=== PATIENT | female | born 1995 | race Two or more races ===

== ENCOUNTER 2020-05-14 17:38 | Emergency (ER) | payer OTHER ==
[2020-05-14] MEDS ORDERED: Sodium Chloride 0.9% 10 ML Syringe FLUSH PRN (18:25)
--- NOTE | 2020-05-14 18:40 | EDM.PDOC ---
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 Patient states that her SUPERVISOR PIPELINE is Dr. Claudine Angulo and she was to see her this Tuesday for the first OB appointment. She is a G2, P1. Patient notes that her last menstrual period ended on March 07, so she thinks she is roughly 10-1/2 weeks . She notes that around 11 AM this morning she started having some vaginal spotting, this was not too heavy she is not even wearing a pad for the bleeding. She did show us a picture of the amount of blood, there is some very small clots and a very minimal amount of bleeding apparent. She is having some low pelvic discomfort but denies any dysuria, frequency or urgency. Further denies any fevers or chills, cough/shortness of breath, nausea/vomiting/diarrhea. Patient does not feel dizzy or lightheaded with standing from a sitting position. Patient speaks primarily Telugu, so her does translate Urdu well for her. 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 ED EXAM - Physical Exam Exam: See Below Exam Limited By: No Limitations General Appearance: Alert, WD/WN, No Apparent Distress Respiratory/Chest: No Respiratory Distress, Lungs Clear, Normal Breath Sounds, No Accessory Muscle Use, Chest Non-Tender Cardiovascular: Normal Peripheral Pulses, Regular Rate, Rhythm, No Edema GI/Abdominal Exam: Normal Bowel Sounds, Soft, Non-Tender, No Distention, No Mass Heart Tones: Not [place] Movement: Not Appreciated Neurological: Alert, Oriented, Normal Cognition, No Motor/Sensory Deficits Psychiatric: Normal Affect, Normal Mood Skin Exam: Warm, Dry, Intact, Normal Color, No Rash Course - Vital Signs Last Recorded V/S: Last Vital Signs Temp 98.9 F 05/14/20 18:09 Pulse 66 05/14/20 18:09 Resp 20 05/14/20 18:09 BP 100/65 05/14/20 18:09 Pulse Ox 99 05/14/20 18:09 - Orders/Labs/Meds Orders: Active Orders 24 hr Category Date Time Status Peripheral IV Care [RC] . DIRECTED Care 05/14/20 18:25 Ordered OB Transvaginal [US] Stat Exams 05/14/20 18:25 Ordered PATIENT RETYPE [BBK] Routine Lab 05/14/20 20:32 Ordered Sodium Chloride 0.9% [Saline Flush] Med 05/14/20 18:25 Ordered 10 ml FLUSH ASDIRECTED PRN Peripheral IV Insertion Adult [OM.PC] Stat Oth 05/14/20 18:25 Ordered Medication Orders Sodium Chloride (Sodium Chloride 0.9% 10 Ml Syringe) 10 ml FLUSH ASDIRECTED PRN PRN Reason: Keep Vein Open Last Admin: 05/14/20 18:58 Dose: 10 ml Documented by: ANA Labs: Laboratory Tests 05/14/20 05/14/20 05/14/20 Range/Units 18:50 18:50 18:50 WBC 9.09 (3.98-10.04) K/mm3 RBC 4.78 (3.98-5.22) M/mm3 Hgb 12.8 (11.2-15.7) gm/dl Hct 39.7 (34.1-44.9) % MCV 83.1 (79.4-94.8) fl MCH 26.8 (25.6-32.2) pg MCHC 32.2 (32.2-35.5) g/dl RDW Std Deviation 38.4 (36.4-46.3) fL Plt Count 293 (182-369) K/mm3 MPV 10.2 (9.4-12.3) fl Neut % (Auto) 54.1 (34.0-71.1) % Lymph % (Auto) 38.2 (19.3-51.7) % [place] % (Auto) 6.3 (4.7-12.5) % Eos % (Auto) 1.1 (0.7-5.8) Baso % (Auto) 0.2 (0.1-1.2) % Neut # (Auto) 4.92 (1.56-6.13) K/mm3 Lymph # (Auto) 3.47 (1.18-3.74) K/mm3 [place] # (Auto) 0.57 H (0.24-0.36) K/mm3 Eos # (Auto) 0.10 (0.04-0.36) K/mm3 Baso # (Auto) 0.02 (0.01-0.08) K/mm3 HCG, Quant 7571.0 mIU/mL Blood Type O POSITIVE Meds: Medications Generic Name Dose Route Start Last Admin Trade Name Freq PRN Reason Stop Dose Admin Sodium Chloride 10 ml 05/14/20 18:25 05/14/20 18:58 Sodium Chloride 0.9% 10 Ml Syringe FLUSH 10 ml ASDIRECTED PRN Administration Keep Vein Open - Re-Assessments/Exams Free Text/Narrative Re-Assessment/Exam: 05/14/20 18:40 Patient presents to the ED for her vaginal bleeding and , we will go ahead get ultrasound, get some baseline labs for evaluation. 05/14/20 20:54 Patient's labs resulted, and she did have ultrasound performed however official radiology read is still pending. CBC is unremarkable, hemoglobin is 12.8,. hCG quantitative level is 7571, blood type is O+. I did initially look at the ultrasound by myself, there was an area on the ultrasound that was dated at 5 weeks 4 days, she might not be as long as she had originally thought, this would correlate with the hCG quantitative level. 05/14/20 20:56 The patient's ultrasound demonstrates a gestational sac measuring 1.3 cm dating the at roughly 5 weeks 4 days, there is no embryonic pole identified or heart rate identified she has no adnexal masses and no free fluid. Impression is a likely early intrauterine , follow-up could be obtained to reassess for viability in 10 to 14 days time. We will have her follow-up with Tosha on Tuesday for her appointment at least for repeat quantitative levels to make sure that they are progressing. We will give her general recommendations and have her return to the ER if things worsen. Departure - Departure Time of Disposition: 20:57 Disposition: Home, Self-Care 01 Condition: Good Clinical Impression: Vaginal bleeding during - Discharge Information *PRESCRIPTION DRUG MONITORING PROGRAM REVIEWED*: No *COPY OF PRESCRIPTION DRUG MONITORING REPORT IN PATIENT HAROLDO: No Instructions: Vaginal Bleeding During , First Trimester Referrals: Claudine Angulo MD [Primary Care Provider] - Forms: ED Department Discharge Additional Instructions: You were evaluated in the ER today regarding your abdominal pain/vaginal bleeding in . You did have some labs drawn, and these were within normal limits, your hCG level was 7571, your blood type is O+. Your ultrasound demonstrated a fetus that is within the uterus, but seems to be fairly early and is measured only at 5 weeks 4 days, so you might not be as far along in the as you had originally anticipated. Unfortunately due to the early state of this , there was no heartbeat identified on today's ultrasound; but again the is likely more earlier than you thought it was, and the heart rate may not have just shown up at today's visit. Recommend that you do not lift anything heavier than a gallon of milk (5 lbs), do not engage in sexual activities, try to get as much pelvic rest as possible for the next few days. Please try not to exert yourself, rest and relax, and take it easy. If you are bleeding through more than 1-2 maxi pads every couple hours, this would be cause for concern to return to the ER for immediate management. Please follow up with your SUPERVISOR PIPELINE at your next scheduled appointment. Please keep your appointment for this Tuesday with Dr. Givens, at least to get your hCG quantitative level repeated, to make sure that the is progressing as expected. Please return to the ED at any time if your symptoms change or worsen. Sepsis Event Note (ED) - Evaluation Sepsis Screening Result: No Definite Risk - Focused Exam Vital Signs: Vital Signs Temp Pulse Resp BP Pulse Ox 05/14/20 18:09 98.9 F 66 20 100/65 99 - My Orders Last 24 Hours: My Active Orders 05/14/20 18:25 Peripheral IV Care [RC] . DIRECTED OB Transvaginal [US] Stat Sodium Chloride 0.9% [Saline Flush] 10 ml FLUSH ASDIRECTED PRN Peripheral IV Insertion Adult [OM.PC] Stat 05/14/20 20:32 PATIENT RETYPE [BBK] Routine - Assessment/Plan Last 24 Hours: My Active Orders 05/14/20 18:25 Peripheral IV Care [RC] . DIRECTED OB Transvaginal [US] Stat Sodium Chloride 0.9% [Saline Flush] 10 ml FLUSH ASDIRECTED PRN Peripheral IV Insertion Adult [OM.PC] Stat 05/14/20 20:32 PATIENT RETYPE [BBK] Routine
--- NOTE | 2020-05-15 09:17 | US ---
First trimester obstetrical ultrasound: Multiple real-time images were obtained transvaginally. Dates: Current ultrasound: Unknown Single gestational sac is seen. No embryo or yolk sac is noted. Maternal ovaries are present. Right maternal ovary shows a small abnormality measuring 1.9 cm most likely represents a physiologic cyst. No free fluid is seen. Impression: 1. Empty gestational sac. Follow-up recommended in 11-14 days to confirm status of . 2. Probable small physiologic cyst within the maternal right ovary. Diagnostic code #2 I agree with preliminary report from [facility], finalized on 05/14/20, 9:53 PM CDT
== END 2020-05-14 21:17 | disposition home or self-care (01) ==
LOC: JD.ED 17:38
DX: O20.9 Hemorrhage in early pregnancy, unspecified (principal); Z3A.01 Less than 8 weeks gestation of pregnancy
CPT/HCPCS: 36415; 76817; 76817-26; 84702; 85025; 86900; 86901; 99283; 99284-25

== ENCOUNTER 2020-05-17 20:33 | Emergency (ER) | payer OTHER ==
[2020-05-17] MEDS ORDERED: Sodium Chloride 0.9% 10 ML Syringe FLUSH PRN (20:54)
[2020-05-17] MEDS ORDERED: Sodium Chloride 0.9% 1,000 ML IV STA (21:05)
[2020-05-17] MEDS ORDERED: HYDROmorphone 0.5 MG/0.5 ML Syringe IVPUSH ONE (21:05)
--- NOTE | 2020-05-17 21:33 | EDM.PDOC ---
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 She is G2, P1 approximately 10 weeks gestation. States her last menstrual period began on 03 March and was completed on March 07. She was seen in this emergency department 3 days ago with onset of light vaginal bleeding. Pelvic ultrasound was completed that time and showed a sac measuring 5 weeks with no pole or heartbeat visualized. Patient and her expressed that there very confident on her dates. They did see her MOVEMENT ASSEMBLER, Dr. Givens, yesterday and states that they were told that she is likely miscarrying. She did have blood work repeated at that time, however, she was not given the results. She has been taking Tylenol for pain with her last dose being around 8 PM this evening. She states it takes the edge off the discomfort but does not manage it well. She reports saturating a regular pad every 2 hours. If she uses a heavy pad she changes about every 3-4 hours, however it is not saturated. She is scheduled for a follow-up visit with Dr. Angulo in 1 week for an ultrasound. 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: Reports: Social & Family History - Tobacco Use Tobacco Use Status *Q: Never Tobacco User Second Hand Smoke Exposure: No - Caffeine Use Caffeine Use: Reports: None - Recreational Drug Use Recreational Drug Use: No ED ROS GENERAL - Review of Systems Review Of Systems: See Below Constitutional: Reports: Fatigue HEENT: Reports: No Symptoms, Eye Discharge Respiratory: Reports: No Symptoms Cardiovascular: Reports: No Symptoms Endocrine: Reports: No Symptoms GI/Abdominal: Reports: No Symptoms : Reports: Other (Pelvic cramping, low back pain, vaginal bleeding) Musculoskeletal: Reports: No Symptoms Skin: Reports: No Symptoms Neurological: Reports: No Symptoms Psychiatric: Reports: No Symptoms Hematologic/Lymphatic: Reports: No Symptoms Immunologic: Reports: No Symptoms ED EXAM - Physical Exam Exam: See Below Exam Limited By: No Limitations General Appearance: Alert, WD/WN, No Apparent Distress Cardiovascular: Normal Peripheral Pulses, Regular Rate, Rhythm, No Edema, No Gallop, No JVD, No Murmur, No Rub GI/Abdominal Exam: Normal Bowel Sounds, Soft, No Organomegaly, No Distention, No Abnormal Bruit, No Mass, Pelvis Stable, Tender (suprapubic tenderness) Neurological: Alert, Oriented, CN II-XII Intact, Normal Cognition, Normal Gait, Normal Reflexes, No Motor/Sensory Deficits Psychiatric: Normal Affect, Normal Mood Skin Exam: Warm, Dry, Intact, Normal Color, No Rash Course - Vital Signs Last Recorded V/S: Last Vital Signs Temp 98.2 F 05/17/20 20:42 Pulse 78 05/17/20 20:42 Resp 16 05/17/20 20:42 BP 109/70 05/17/20 20:42 Pulse Ox 99 05/17/20 20:42 - Orders/Labs/Meds Orders: Active Orders 24 hr Category Date Time Status CULTURE URINE [RM] Stat Lab 05/17/20 22:39 Received Peripheral IV Insertion Adult [OM.PC] Stat Oth 05/17/20 20:54 Ordered Labs: Laboratory Tests 05/17/20 05/17/20 05/17/20 Range/Units 20:55 20:55 20:55 WBC 10.47 H (3.98-10.04) K/mm3 RBC 4.59 (3.98-5.22) M/mm3 Hgb 12.3 (11.2-15.7) gm/dl Hct 38.2 (34.1-44.9) % MCV 83.2 (79.4-94.8) fl MCH 26.8 (25.6-32.2) pg MCHC 32.2 (32.2-35.5) g/dl RDW Std Deviation 38.1 (36.4-46.3) fL Plt Count 259 (182-369) K/mm3 MPV 10.1 (9.4-12.3) fl Neut % (Auto) 54.6 (34.0-71.1) % Lymph % (Auto) 36.9 (19.3-51.7) % [place] % (Auto) 6.9 (4.7-12.5) % Eos % (Auto) 1.3 (0.7-5.8) Baso % (Auto) 0.1 (0.1-1.2) % Neut # (Auto) 5.72 (1.56-6.13) K/mm3 Lymph # (Auto) 3.86 H (1.18-3.74) K/mm3 [place] # (Auto) 0.72 H (0.24-0.36) K/mm3 Eos # (Auto) 0.14 (0.04-0.36) K/mm3 Baso # (Auto) 0.01 (0.01-0.08) K/mm3 Manual Slide Review Normal smear Sodium 141 (136-145) mEq/L Potassium 3.8 (3.5-5.1) mEq/L Chloride 105 (98-107) mEq/L Carbon Dioxide 24 (21-32) mEq/L Anion Gap 15.8 H (5-15) BUN 15 (7-18) mg/dL Creatinine 0.7 (0.55-1.02) mg/dL Est Cr Clr Drug Dosing TNP Estimated GFR (MDRD) > 60 (>60) mL/min BUN/Creatinine Ratio 21.4 H (14-18) Glucose 101 (74-106) mg/dL Calcium 9.0 (8.5-10.1) mg/dL Total Bilirubin 0.1 L (0.2-1.0) mg/dL AST 17 (15-37) U/L ALT 22 (14-59) U/L Alkaline Phosphatase 59 (46-116) U/L Total Protein 7.6 (6.4-8.2) g/dl Albumin 3.6 (3.4-5.0) g/dl Globulin 4.0 gm/dL Albumin/Globulin Ratio 0.9 L (1-2) HCG, Quant 4347.0 mIU/mL Urine Color (Yellow) Urine Appearance (Clear) Urine pH (5.0-8.0) Ur Specific [place] (1.005-1.030) Urine Protein (Negative) Urine Glucose (UA) (Negative) Urine Ketones (Negative) Urine Occult Blood (Negative) Urine Nitrite (Negative) Urine Bilirubin (Negative) Urine Urobilinogen (0.2-1.0) Ur Leukocyte Esterase (Negative) Urine RBC (0-5) /hpf Urine WBC (0-5) /hpf Ur Squamous Epith Cells (0-5) /hpf Urine Bacteria (FEW) /hpf Urine Mucus (FEW) /hpf 05/17/20 Range/Units 22:13 WBC (3.98-10.04) K/mm3 RBC (3.98-5.22) M/mm3 Hgb (11.2-15.7) gm/dl Hct (34.1-44.9) % MCV (79.4-94.8) fl MCH (25.6-32.2) pg MCHC (32.2-35.5) g/dl RDW Std Deviation (36.4-46.3) fL Plt Count (182-369) K/mm3 MPV (9.4-12.3) fl Neut % (Auto) (34.0-71.1) % Lymph % (Auto) (19.3-51.7) % [place] % (Auto) (4.7-12.5) % Eos % (Auto) (0.7-5.8) Baso % (Auto) (0.1-1.2) % Neut # (Auto) (1.56-6.13) K/mm3 Lymph # (Auto) (1.18-3.74) K/mm3 [place] # (Auto) (0.24-0.36) K/mm3 Eos # (Auto) (0.04-0.36) K/mm3 Baso # (Auto) (0.01-0.08) K/mm3 Manual Slide Review Sodium (136-145) mEq/L Potassium (3.5-5.1) mEq/L Chloride (98-107) mEq/L Carbon Dioxide (21-32) mEq/L Anion Gap (5-15) BUN (7-18) mg/dL Creatinine (0.55-1.02) mg/dL Est Cr Clr Drug Dosing Estimated GFR (MDRD) (>60) mL/min BUN/Creatinine Ratio (14-18) Glucose (74-106) mg/dL Calcium (8.5-10.1) mg/dL Total Bilirubin (0.2-1.0) mg/dL AST (15-37) U/L ALT (14-59) U/L Alkaline Phosphatase (46-116) U/L Total Protein (6.4-8.2) g/dl Albumin (3.4-5.0) g/dl Globulin gm/dL Albumin/Globulin Ratio (1-2) HCG, Quant mIU/mL Urine Color Red H (Yellow) Urine Appearance Cloudy H (Clear) Urine pH 6.0 (5.0-8.0) Ur Specific [place] 1.020 (1.005-1.030) Urine Protein 3+ H (Negative) Urine Glucose (UA) Negative (Negative) Urine Ketones 1+ H (Negative) Urine Occult Blood 3+ H (Negative) Urine Nitrite Positive H (Negative) Urine Bilirubin 2+ H (Negative) Urine Urobilinogen 1.0 (0.2-1.0) Ur Leukocyte Esterase 3+ H (Negative) Urine RBC Too numerous to cnt H (0-5) /hpf Urine WBC 5-10 H (0-5) /hpf Ur Squamous Epith Cells 0-5 (0-5) /hpf Urine Bacteria Rare (FEW) /hpf Urine Mucus Not seen (FEW) /hpf Meds: Medications Discontinued Medications Generic Name Dose Route Start Last Admin Trade Name Freq PRN Reason Stop Dose Admin Hydromorphone HCl 0.5 mg 05/17/20 21:05 05/17/20 21:18 Hydromorphone 0.5 Mg/0.5 Ml Syringe IVPUSH 05/17/20 21:06 0.5 mg ONETIME ONE Administration Sodium Chloride 1,000 mls @ 999 mls/hr 05/17/20 21:05 05/17/20 21:18 Normal Saline IV 05/17/20 22:05 999 mls/hr NOW STA Administration Nitrofurantoin Macrocrystals 100 mg 05/17/20 22:42 05/17/20 23:02 Nitrofurantoin Monohydrate/Macrocrystalline 100 Mg Cap PO 05/17/20 22:43 100 mg ONETIME ONE Administration Sodium Chloride 10 ml 05/17/20 20:54 05/17/20 20:59 Sodium Chloride 0.9% 10 Ml Syringe FLUSH 10 ml ASDIRECTED PRN Administration Keep Vein Open - Re-Assessments/Exams Free Text/Narrative Re-Assessment/Exam: Patient is a 25-year-old female presenting to the emergency department with complaints of pelvic cramping, low back pain, and increased vaginal bleeding. She was seen in this emergency department 3 days ago for mild vaginal bleeding. She estimates that she should be about 10 weeks . At that time ultrasound was completed and showed a gestational sac measuring at 5 weeks with no pole or heartbeat. It was uncertain if her dates were off and this was early gestation or the stopped progressing. She states that she had an appoint with her MOVEMENT ASSEMBLER yesterday and was told that she is likely miscarrying. She has been taking Tylenol for pain but states it is not helping much. I have ordered blood work including CBC, CMP, quantitative hCG, and urina lysis. If patient's hCG level is dropping, this would be consistent with miscarriage and there would be no indication for repeat ultrasound. If the numbers increasing, I will order a transvaginal ultrasound to look for possible cause of bleeding. We will give the patient a 1 L bolus of normal saline as well as Dilaudid 0.5 mg IV. 05/17/20 22:45 Results of hematology shows a normal hemoglobin of 12.3. Quantitative hCG has decreased to 4347 from 7571 3 days ago. This indicates the patient is miscarrying. Patient's pain has improved with the Dilaudid. Urinalysis showed red cloudy urine with 3+ protein, 1+ ketones, 3+ occult blood, positive nitrates, 2+ bili, 3+ leukocyte esterase, RBCs too numerous to count, and 5-[address] her on Macrobid for treatment of urinary tract infection. Urine has been sent for culture. I will discharge her home with a prescription with for Percocet for pain. Discussed return precautions including saturating a pad an hour for 2 or more hours. Patient and her are in agreement with this plan. Discharge instructions as documented. Departure - Departure Time of Disposition: 22:45 Disposition: Home, Self-Care 01 Condition: Good Clinical Impression: Incomplete - Discharge Information *PRESCRIPTION DRUG MONITORING PROGRAM REVIEWED*: Yes *COPY OF PRESCRIPTION DRUG MONITORING REPORT IN PATIENT HAROLDO: No Instructions: Miscarriage, [id number] Referrals: Claudine Angulo MD [Primary Care Provider] - Forms: ED Department Discharge Additional Instructions: You were seen in the emergency department today for increased vaginal bleeding and worsening of pelvic pain and low back pain. Blood work was completed. Your hemoglobin was found to be normal. Unfortunately your beta hCG ( hormone) level dropped from 7571 three days ago to 4347 today. Unfortunately, this indicates that you are having a miscarriage. While in the ER, you received IV fluids and pain medication. Recommend routine Tylenol and ibuprofen as needed for pain. For pain not relieved by these, you have been provided a prescription for Percocet. Take this only as prescribed. Do not work or drive for 12 hours after taking this medication as it can be sedating. Ensure that you are not taking more than 4000 mg of Tylenol from all sources in a 24-hour period. If your bleeding should increase to where you are saturating a pad an hour for more than 2 hours or you are unable to manage your pain at home, please return to the emergency department for reevaluation. Otherwise, follow-up with your MOVEMENT ASSEMBLER next week as scheduled. Urinalysis completed today did show that you also have a urinary tract infection. You have been started on Macrobid for treatment of this. Take this medication as prescribed in its entirety. Hoy la atendieron en el departamento de emergencias por aumento del sangrado vaginal y empeoramiento del dolor plvico y lumbar. Se complet el anlisis de lucille. Se encontr que monson hemoglobina era normal. Desafortunadamente, monson nivel de beta hCG (hormona del embarazo) baj de 7571 hace hermila wells a 4347 en la actualidad. Desafortunadamente, esto indica que est teniendo un aborto espontneo. Mientras estaba en la julia de emergencias, recibi lquidos por va intravenosa y analgsicos. Recomiende Tylenol e ibuprofeno de rutina segn sea necesario para el dolor. Para el dolor que no se demetrice con estos, se le coelho proporcionado malcolm receta para Percocet. [place] esto solo segn lo prescrito. No trabaje ni conduzca leila 12 horas despus de rhonda priscilla medicamento, ya que puede ser un sedante. Asegrese de no rhonda ms de 4000 mg de Tylenol de todas las blair en un perodo de 24 horas. Si monson sangrado aumenta hasta el punto en que est saturando malcolm toalla sanitaria por hora leila ms de 2 horas o si no puede controlar monson dolor en casa, regrese al departamento de emergencias para malcolm reevaluacin. De lo contrario, keri un seguimiento con monson obstetra / gineclogo la prxima semana segn lo programado. El anlisis de orina completado hoy mostr que tambin tiene malcolm infeccin del tracto urinario. Coelho comenzado con Macrobid para el tratamiento de esto. [place] priscilla medicamento segn lo prescrito en monson totalidad. Sepsis Event Note (ED) - Evaluation Sepsis Screening Result: No Definite Risk - My Orders Last 24 Hours: My Active Orders 05/17/20 20:54 Peripheral IV Insertion Adult [OM.PC] Stat 05/17/20 22:39 CULTURE URINE [RM] Stat - Assessment/Plan Last 24 Hours: My Active Orders 05/17/20 20:54 Peripheral IV Insertion Adult [OM.PC] Stat 05/17/20 22:39 CULTURE URINE [RM] Stat
[2020-05-17] MEDS ORDERED: Nitrofurantoin Monohydrate/Macrocrystalline 100 MG Cap PO ONE (22:42)
== END 2020-05-17 23:03 | disposition home or self-care (01) ==
LOC: JD.ED 20:33
DX: O03.4 Incomplete spontaneous abortion without complication (principal)
CPT/HCPCS: 36415; 80053; 81001; 84702; 85025; 87086; 87088; 87181; 87184; 96374; 99284; A9270; J1170; J7030

== ENCOUNTER 2020-05-18 20:50 | Emergency (ER) | payer OTHER ==
--- NOTE | 2020-05-18 21:48 | EDM.PDOC ---
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 She has been seen on the previous day for cramping and spotting. She had also been seen 4 days ago for similar presentation. It is noted that she passed more clots and and possibly a fetus. There is been no fever. No jeniffer abdominal pain. No nausea and vomiting. No jeniffer abdominal pain other than the cramping. No risk factors identified. Patient takes no medication on a regular basis other than the vitamins. There is been no specific intervention prior to admission today other than the exam on the previous day. 2 para 1. Non-smoker. 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 ED EXAM - Physical Exam Exam: See Below Text/Narrative:: Patient is alert and looks well. Head normocephalic atraumatic. EOMI PERRLA. Neck is supple without jugular venous distention. Lungs are clear breath sounds are full and equal bilaterally. Heart is regular. Abdomen is soft and nontender. No guarding or rebound. No peripheral edema cyanosis or clubbing. Neurologically grossly intact. Patient appears robust and well. Course - Vital Signs Text/Narrative:: Ultrasound has been done. "Gestational sac has passed. No retained products of conception." Discussed with patient and her . She is to call her solution analyst tomorrow and notify of the events of this weekend. Precautions for return to ER. Last Recorded V/S: Last Vital Signs Temp 36.8 C 05/18/20 21:06 Pulse 77 05/18/20 21:06 Resp 18 05/18/20 21:06 BP 113/67 05/18/20 21:06 Pulse Ox 98 05/18/20 21:06 - Orders/Labs/Meds Orders: Active Orders 24 hr Category Date Time Status OB Transvaginal [US] Stat Exams 05/18/20 21:32 Taken Departure - Departure Time of Disposition: 23:17 Disposition: Home, Self-Care 01 Condition: Good Clinical Impression: Spontaneous - Discharge Information Referrals: PCP,None [Primary Care Provider] - Forms: ED Department Discharge Additional Instructions: Tuviste un aborto espontaneo. En monson ultrasonido no hay productos de la walters en monson utero. Llame para monson gineclogo manana y informar de eventos de esta visita. Venga iinmediatamente para fiebre o alguna otro problema. Sepsis Event Note (ED) - Evaluation Sepsis Screening Result: No Definite Risk - Focused Exam Vital Signs: Vital Signs Temp Pulse Resp BP Pulse Ox 05/18/20 21:06 36.8 C 77 18 113/67 98 - My Orders Last 24 Hours: My Active Orders 05/18/20 21:32 OB Transvaginal [US] Stat - Assessment/Plan Last 24 Hours: My Active Orders 05/18/20 21:32 OB Transvaginal [US] Stat
--- NOTE | 2020-05-19 08:59 | US ---
First trimester obstetrical ultrasound: Multiple real-time images were obtained transvaginally. Comparison: Prior obstetrical ultrasound of 05/14/20. Uterus is anteverted. No gestational sac is seen within the endometrial cavity. Previous study showed a small gestational sac which is no longer seen. Right and left ovaries appear within normal limits. Minimal free fluid is seen within the cul-de-sac. No abnormal vascular flow is seen within the endometrial cavity. Impression: 1. Normal pelvic ultrasound study. 2. Previous gestational sac is no longer seen. Diagnostic code #1 I agree with preliminary report from [facility], finalized on 05/19/20, 12:11 AM Central Daylight Time
== END 2020-05-18 23:35 | disposition home or self-care (01) ==
LOC: JD.ED 20:50
DX: O03.9 Complete or unspecified spontaneous abortion without complication (principal); Z86.16 Personal history of COVID-19
CPT/HCPCS: 76817; 76817-26; 99283; 99284-25

== ENCOUNTER 2021-03-23 05:51 | Inpatient (IN) | payer OTHER ==
[2021-03-23] MEDS ORDERED: Nalbuphine 10 MG/1 ML Vial IVPUSH PRN (06:05)
[2021-03-23] MEDS ORDERED: Oxytocin/Lactated Ringers 10 UNIT/1,000 ML BAG IV SCH ×2 (06:15→08:00)
[2021-03-23] MEDS: Lactated Ringers 1,000 ML IV SCH ×2 (06:35→07:20)
[2021-03-23] MEDS ORDERED: fentaNYL 100 MCG/2 ML SDV EPIDUR PRN (07:11)
[2021-03-23] MEDS ORDERED: Bupivacaine/fentaNYL/NS 100 ML Bag EPIDUR PRN (07:11)
[2021-03-23] MEDS ORDERED: diphenhydrAMINE 50 MG/ML SDV IVPUSH PRN ×2 (07:11→11:05)
[2021-03-23] MEDS ORDERED: ePHEDrine 50 MG/ML SDV IVPUSH PRN ×2 (07:11→11:05)
[2021-03-23] MEDS ORDERED: Sodium Chloride 0.9% 10 ML Syringe FLUSH SCH (09:00)
[2021-03-23] MEDS ORDERED: Dextrose 5%-Lactated Ringers 1,000 ML IV SCH (11:05)
[2021-03-23] MEDS ORDERED: Naloxone 0.4 MG/ML SDV IVPUSH PRN (11:05)
[2021-03-23] MEDS ORDERED: Benzocaine/Menthol 20%-0.5% Spray 78 GM Cannister TOP PRN (11:53)
[2021-03-23] MEDS ORDERED: Misoprostol 200 MCG Tab PO ONE (12:00)
[2021-03-23] MEDS: Ibuprofen 600 MG Tab PO PRN ×2 (13:22→23:44)
[2021-03-23] MEDS: Witch Hazel Medicated Pads 40/Jar TOP PRN (13:23)
[2021-03-23] MEDS: Acetaminophen 325 MG Tab PO PRN (16:42)
[2021-03-23] MEDS: Docusate Sodium 100 MG Cap PO PRN (16:42)
[2021-03-23] MEDS ORDERED: Lidocaine 1.5% with EPINEPHrine 1:200,000 5 ML Amp ONE (17:00)
[2021-03-24] MEDS: Acetaminophen 325 MG Tab PO PRN (03:17)
[2021-03-24] MEDS: Ibuprofen 600 MG Tab PO PRN (10:22)
[2021-03-24] MEDS: Docusate Sodium 100 MG Cap PO PRN (10:23)
[2021-03-24] MEDS: Witch Hazel Medicated Pads 40/Jar TOP PRN (10:23)
== END 2021-03-24 12:00 | disposition home or self-care (01) | DRG 805 ==
LOC: JD.OB 05:51 → JD.OBCHECK 05:51 → JD.OB 06:28 → OBSVTOIN 10:29 → JD.OB 10:30 → JD.MS 10:30
PROVIDERS: ADMIT Obstetrics & Gynecology; ATTEND Obstetrics & Gynecology
PROC: 10E0XZZ Delivery of Products of Conception, External Approach (ICD-10-PCS; principal; 2021-03-23)
PROC: 10907ZC Drainage of Amniotic Fluid, Therapeutic from Products of Conception, Via Natural or Artificial Opening (ICD-10-PCS; 2021-03-23)
PROC: 3E0R3BZ Introduction of Anesthetic Agent into Spinal Canal, Percutaneous Approach (ICD-10-PCS; 2021-03-23)
PROC: 00HU33Z Insertion of Infusion Device into Spinal Canal, Percutaneous Approach (ICD-10-PCS; 2021-03-23)
DX: O98.52 Other viral diseases complicating childbirth (principal); U07.1 COVID-19; Z37.0 Single live birth; Z3A.39 39 weeks gestation of pregnancy
CPT/HCPCS: 01967; 36415; 51702; 59025; 59409; 85025; 86592; 86850; 86900; 86901; A9270-GY; J2590; J3010; J7120; U0002

== ENCOUNTER 2022-07-31 12:57 | Emergency (ER) | payer MEDICAID, OTHER | END 2022-07-31 16:36 | disposition home or self-care (01) | LOC: JD.ED 12:57 | DX: O20.9 Hemorrhage in early pregnancy, unspecified (principal); Z3A.19 19 weeks gestation of pregnancy; Z86.16 Personal history of COVID-19 | CPT/HCPCS: 76815; 76815-26; 99283; 99284 ==

== ENCOUNTER 2022-12-22 09:04 | Inpatient (IN) | payer OTHER ==
[2022-12-22] MEDS ORDERED: Calcium Carbonate 500 MG Tab.Chew PO PRN (09:38)
[2022-12-22] MEDS ORDERED: Nalbuphine HCl 10 MG/ 1ML Amp IVPUSH PRN (09:38)
[2022-12-22] MEDS ORDERED: Lidocaine 1% 50 ML MDV INJECT ONE (09:38)
[2022-12-22] MEDS ORDERED: Ondansetron 4 MG/2 ML SDV IVPUSH PRN (09:38)
[2022-12-22] MEDS ORDERED: Oxytocin/Lactated Ringers 30 UNIT/500 ML BAG IV SCH ×2 (09:45→10:00)
[2022-12-22 10:04] LABS: BASOPHILS PERCENT AUTO 0.3 % (0.0-1.0); EOSINOPHILS PERCENT AUTO 0.5 % (0.0-6.0); HEMATOCRIT 33.7 % (37.0-47.0); HEMOGLOBIN 11.3 gm/dl (12.0-16.0); IMMATURE GRAN ABSOLUTE AUTO 0.05 K/mm3 (0.00-0.05); IMMATURE GRAN PERCENT AUTO 0.6 % (0.0-0.4); LYMPHOCYTES ABSOLUTE AUTO 1.9 K/mm3 (1.0-4.8); LYMPHOCYTES PERCENT AUTO 23.5 % (24.0-44.0); MEAN CORPUSCULAR HEMOGLOBIN 28.9 pg (28.0-32.0); MEAN CORPUSCULAR HGB CONC 33.5 g/dl (32.0-36.0); MEAN CORPUSCULAR VOLUME 86.2 fl (83.0-99.0); MEAN PLATELET VOLUME 10.8 fl (9.4-12.3); MONOCYTES ABSOLUTE AUTO 0.4 K/mm3 (0.0-0.8); MONOCYTES PERCENT AUTO 5.3 % (0.0-8.0); NEUTROPHILS ABSOLUTE AUTO 5.6 K/mm3 (1.8-7.7); NEUTROPHILS PERCENT AUTO 69.8 % (41.0-71.0); PLATELET COUNT,PLT 235 K/mm3 (150-400); RED BLOOD CELL COUNT 3.91 M/mm3 (4.10-5.30); WHITE BLOOD CELL COUNT,WBC 7.97 K/mm3 (3.9-11.3)
[2022-12-22] MEDS ORDERED: ePHEDrine 50 MG/ML SDV IVPUSH PRN (10:58)
[2022-12-22] MEDS ORDERED: Bupivacaine/fentaNYL/NS 100 ML Bag EPIDUR PRN (10:58)
[2022-12-22] MEDS ORDERED: fentaNYL 100 MCG/2 ML SDV EPIDUR PRN (10:58)
[2022-12-22] MEDS ORDERED: diphenhydrAMINE 50 MG/ML SDV IVPUSH PRN (10:58)
[2022-12-22] MEDS: Lactated Ringers 1,000 ML IV SCH ×3 (12:15→14:16)
[2022-12-22] MEDS ORDERED: Acetaminophen 325 MG Tab PO PRN (16:31)
[2022-12-22] MEDS ORDERED: Witch Hazel Medicated Pads 40/Jar TOP PRN (19:40)
[2022-12-22] MEDS ORDERED: Benzocaine/Menthol 20%-0.5% Spray 78 GM Cannister TOP PRN (19:40)
[2022-12-22] MEDS ORDERED: Sodium Chloride 0.9% 10 ML Syringe FLUSH SCH (21:00)
[2022-12-22] MEDS: Ibuprofen 600 MG Tab PO PRN (22:09)
[2022-12-23] MEDS: Acetaminophen 325 MG Tab PO PRN ×3 (03:57→20:05)
[2022-12-23] MEDS: Ibuprofen 600 MG Tab PO PRN ×2 (07:48→16:50)
[2022-12-23] MEDS: Docusate Sodium 100 MG Cap PO PRN ×2 (08:29→20:05)
[2022-12-24] MEDS: Acetaminophen 325 MG Tab PO PRN (08:49)
[2022-12-24] MEDS: Ibuprofen 600 MG Tab PO PRN (08:50)
[2022-12-24] MEDS: Docusate Sodium 100 MG Cap PO PRN (08:50)
== END 2022-12-24 09:40 | disposition home or self-care (01) | DRG 807 ==
LOC: JD.OBCHECK 09:04 → JD.OB 09:08 → JD.OBCHECK 09:38 → JD.OB 11:34 → OBSVTOIN 19:16 → JD.OB 19:51
PROVIDERS: ADMIT Obstetrics & Gynecology; ATTEND Obstetrics & Gynecology
PROC: 10E0XZZ Delivery of Products of Conception, External Approach (ICD-10-PCS; principal; 2022-12-22)
PROC: 10907ZC Drainage of Amniotic Fluid, Therapeutic from Products of Conception, Via Natural or Artificial Opening (ICD-10-PCS; 2022-12-22)
PROC: 3E0R3BZ Introduction of Anesthetic Agent into Spinal Canal, Percutaneous Approach (ICD-10-PCS; 2022-12-22)
PROC: 00HU33Z Insertion of Infusion Device into Spinal Canal, Percutaneous Approach (ICD-10-PCS; 2022-12-22)
DX: O48.0 Post-term pregnancy (principal); Z37.0 Single live birth; Z3A.40 40 weeks gestation of pregnancy
CPT/HCPCS: 36415; 51701; 59025; 59409; 85025; 86592; A9270-GY; C1758; J3010; J3490; J7120; J7999